=== PATIENT | female | born 1985 | race Caucasian/White ===

== ENCOUNTER → 2024-12-21 07:42 | Outpatient (REF) | payer BC, SELFPAY | LOC: RAD 07:42 | PROVIDERS: ATTENDING PHYSICIAN Family Medicine | DX: K80.50 Calculus of bile duct without cholangitis or cholecystitis without obstruction (principal) | CPT/HCPCS: 76700 ==

== ENCOUNTER → 2025-01-07 15:59 | Outpatient (REF) | payer BC, SELFPAY | LOC: REG 15:59 | PROVIDERS: ATTENDING PHYSICIAN Physician Assistant Medical; FAMILY PHYSICIAN Family Medicine | DX: M25.551 Pain in right hip (principal) | CPT/HCPCS: 73502 ==